=== PATIENT | female | born 1995 ===

== ENCOUNTER 2019-04-22 11:29 | Outpatient (CLI) | payer SELFPAY ==
[2019-04-22 13:39] VITALS: BP 112/53
[2019-04-22] MEDS ORDERED: LACTATED RINGERS 1,000 ML IV SCH (14:00)
[2019-04-22] MEDS ORDERED: PHENYLEPHRINE/NS 1,000 MCG/10 ML SYRINGE (OR USE) IV ONE (14:04)
[2019-04-22] MEDS ORDERED: KETOROLAC 30 MG/1 ML INJ ONE (14:04)
[2019-04-22] MEDS ORDERED: OXYTOCIN 10 UNIT/1 ML INJ ONE (14:04)
[2019-04-22] MEDS ORDERED: LACTATED RINGERS 1,000 ML ONE (14:29)
== END 2019-04-22 13:40 | disposition home or self-care (01) ==
LOC: TRG 11:29
PROVIDERS: ATTEND Obstetrics & Gynecology
DX: O26.893 Other specified pregnancy related conditions, third trimester (principal); R10.9 Unspecified abdominal pain; O47.02 False labor before 37 completed weeks of gestation, second trimester; Z3A.26 26 weeks gestation of pregnancy
CPT/HCPCS: 59025; J1885; J2370; J2590; J7120

== ENCOUNTER 2021-05-27 02:00 | Emergency (ER) | payer SELFPAY ==
[2021-05-27 02:08] VITALS: BP 103/37
[2021-05-27] MEDS ORDERED: ONDANSETRON 4 MG ODT TAB PO ONE (02:55)
[2021-05-27] MEDS ORDERED: ACETAMINOPHEN 500 MG TAB PO ONE (02:55)
[2021-05-27] MEDS ORDERED: FAMOTIDINE 20 MG TAB PO ONE (02:55)
[2021-05-27 03:41] LABS: HCG Qualitative,Urine Positive (Negative)
[2021-05-27 03:42] LABS: Bilirubin,Urine NEG (Negative); Blood,Urine NEG (Negative); Color,Urine Yellow (Yellow); Mucus,Urine 1+ /HPF; Urobilinogen,Urine < 2.0 mg/dL (<2.0)
--- NOTE | 2021-05-27 03:54 | Emergency Department Report ---
ED N/V/D HPI - General Chief complaint: Pain General Stated complaint: COVID S/S Source: patient Mode of arrival: Ambulatory Limitations: No Limitations - History of Present Illness Initial comments: Patient is a A0 25-year-old female who presented to the ED with complaint of acute onset persistent nausea and vomiting with severe headache, generalized weakness and diffuse body aches and pains for the last 1 week, worse in the last 3 days. Patient states that she has not been able to keep anything down in the last 12 hours. Patient denies dizziness, syncope, abdominal pain, vaginal bleeding, vaginal discharge, fever, chills, cough, sore throat, diarrhea, dysuria, urinary frequency and urgency or back pain. MD complaint: nausea, vomiting, other (headache; diffuse body aches and pains, generalized weakness, 5 weeks gestation) -: Sudden, week(s) (1) Description of Vomiting: food contents, watery, bilious Associated Abdominal Pain: No Location: diffuse Radiation: none Severity: severe Pain Scale: 7 Quality: dull Consistency: intermittent Improves with: none Worsens with: eating, vomiting Context: other (Approximately 5 weeks gestation) Associated Symptoms: denies other symptoms, myalgias, headaches, loss of appetite, malaise, nausea/vomiting. denies: chest pain, cough, diaphoresis, fever/chills, rash, dysuria, shortness of breath, syncope, weakness - Related Data Previous Rx's Medication Instructions Recorded Last Taken Type Acetaminophen [Tylenol] 500 mg PO Q6HR PRN #40 tablet 05/27/21 Unknown Rx Famotidine [Pepcid] 20 mg PO BID #60 tablet 05/27/21 Unknown Rx Metoclopramide [Reglan] 10 mg PO Q8H PRN #30 tab 05/27/21 Unknown Rx Promethazine [Phenergan] 25 mg CA Q6HR PRN #15 supp.rect 05/27/21 Unknown Rx Allergies Allergy/AdvReac Type Severity Reaction Status Date / Time No Known Allergies Allergy Verified 04/22/19 13:35 ED Review of Systems ROS: Stated complaint: COVID S/S Other details as noted in HPI Constitutional: weakness. denies: chills, fever Eyes: denies: eye pain, eye discharge, vision change ENT: denies: ear pain, throat pain Respiratory: denies: cough, shortness of breath, wheezing Cardiovascular: denies: chest pain, palpitations Endocrine: no symptoms reported Gastrointestinal: nausea, vomiting. denies: abdominal pain, diarrhea Genitourinary: denies: urgency, dysuria, discharge Musculoskeletal: arthralgia, myalgia. denies: back pain, joint swelling Skin: denies: rash, lesions Neurological: headache. denies: weakness, paresthesias Psychiatric: denies: anxiety, depression Hematological/Lymphatic: denies: easy bleeding, easy bruising ED Past Medical Hx - Past Medical History Previous Medical History?: No Hx Hypertension: No Hx Diabetes: No Hx Deep Vein Thrombosis: No Hx Renal Disease: Yes (as a child) Hx Sickle Cell Disease: No Hx Seizures: No Hx Asthma: No Hx HIV: No - Surgical History Past Surgical History?: No - Social History Smoking Status: Never Smoker - Medications Home Medications: Home Medications Medication Instructions Recorded Confirmed Last Taken Type Acetaminophen [Tylenol] 500 mg PO Q6HR PRN #40 tablet 05/27/21 Unknown Rx Famotidine [Pepcid] 20 mg PO BID #60 tablet 05/27/21 Unknown Rx Metoclopramide [Reglan] 10 mg PO Q8H PRN #30 tab 05/27/21 Unknown Rx Promethazine [Phenergan] 25 mg CA Q6HR PRN #15 supp.rect 05/27/21 Unknown Rx ED Physical Exam - General Limitations: No Limitations General appearance: alert, in no apparent distress - Head Head exam: Present: atraumatic, normocephalic, normal inspection - Eye Eye exam: Present: normal appearance, PERRL, EOMI Pupils: Present: normal accommodation - ENT ENT exam: Present: normal exam, normal orophraynx, mucous membranes moist, TM's normal bilaterally, normal external ear exam - Neck Neck exam: Present: normal inspection, full ROM. Absent: tenderness - Respiratory Respiratory exam: Present: normal lung sounds bilaterally. Absent: respiratory distress, wheezes, rales, rhonchi, chest wall tenderness, other - Cardiovascular Cardiovascular Exam: Present: regular rate, normal rhythm, normal heart sounds. Absent: systolic murmur, diastolic murmur, rubs, gallop - GI/Abdominal GI/Abdominal exam: Present: soft, normal bowel sounds. Absent: tenderness, guarding, hyperactive bowel sounds, hypoactive bowel sounds - Extremities Exam Extremities exam: Present: normal inspection, full ROM, normal capillary refill - Back Exam Back exam: Present: normal inspection, full ROM. Absent: tenderness, CVA tenderness (R), CVA tenderness (L), muscle spasm, paraspinal tenderness, vertebral tenderness - Neurological Exam Neurological exam: Present: alert, oriented X3, CN II-XII intact, normal gait, reflexes normal - Psychiatric Psychiatric exam: Present: normal affect, normal mood - Skin Skin exam: Present: warm, dry, intact, normal color. Absent: rash ED Course Vital Signs 05/27/21 02:01 Temperature 98.9 F Pulse Rate 60 Respiratory 18 Rate Blood Pressure 103/37 [Right] O2 Sat by Pulse 99 Oximetry ED Medical Decision Making - Medical Decision Making This is a A0 25-year-old female who presented to the ED with complaint of acute onset persistent nausea and vomiting with severe headache, generalized weakness and diffuse body aches and pains for the last 1 week, worse in the last 3 days. Patient states that she has not been able to keep anything down in the last 12 hours. In the ED, patient is alert and oriented x3 and is not in any distress. Patient was treated for nausea and vomiting in the ED and also given Tylenol for pain and headache. Urinalysis is unremarkable except for a positive urine hCG test. On reevaluation, patient's headache improved significantly and resolved, patient has not had any nausea or vomiting after being treated with antiemetics in the ED. Patient was therefore discharged home on antiemetics as well as pain medications and advised to follow-up with her primary care physician or [facility] physician in 5 to 7 days for reevaluation or return to the ED immediately if symptoms get worse. - Differential Diagnosis Dehydration; viral gastroenteritis; ; UTI; Critical care attestation.: If time is entered above; I have spent that time in minutes in the direct care of this critically ill patient, excluding procedure time. ED Disposition Clinical Impression: Nausea and vomiting during Acute tension-type headache Qualifiers: Intractability: not intractable Qualified Code(s): G44.209 - Tension-type headache, unspecified, not intractable Disposition: 01 HOME / SELF CARE / HOMELESS Is pt being admited?: No Does the pt Need Aspirin: No Condition: Stable Instructions: Nausea and Vomiting, Adult, [id number], Morning Sickness, Uudz-[id number], Tension Headache, Adult, [id number] Additional Instructions: Maintain a clear liquid diet for 12 to 24 hours, take medication with food, drink plenty of fluids and follow-up with the [facility] physician in 5 to 7 days for reevaluation. Return to the ED immediately if symptoms get worse. Prescriptions: Acetaminophen [Tylenol] 500 mg PO Q6HR PRN #40 tablet PRN Reason: Pain or fever Famotidine [Pepcid] 20 mg PO BID #60 tablet Promethazine [Phenergan] 25 mg CA Q6HR PRN #15 supp.rect PRN Reason: Nausea And Vomiting Metoclopramide [Reglan] 10 mg PO Q8H PRN #30 tab PRN Reason: Nausea And Vomiting Referrals: CHIRAG ODELL MD [Staff Physician] - 3-5 Days Time of Disposition: 03:55 Print Language: KYRGYZ
== END 2021-05-27 03:45 | disposition home or self-care (01) ==
LOC: ED 02:00
DX: O21.9 Vomiting of pregnancy, unspecified (principal); O26.891 Other specified pregnancy related conditions, first trimester; G44.209 Tension-type headache, unspecified, not intractable; Z3A.01 Less than 8 weeks gestation of pregnancy
CPT/HCPCS: 81001; 81025; 99283; J3490; Q0162

== ENCOUNTER 2021-12-28 21:41 | Inpatient (IN) | payer MEDICAID ==
[2021-12-29 00:01] LABS: Amphetamine Screen,Urine PRESUMPTIVE NEGATIVE; Benzodiazepines Screen,Urine PRESUMPTIVE NEGATIVE; Cannabinoid Screen,Urine PRESUMPTIVE NEGATIVE; Cocaine Screen,Urine PRESUMPTIVE NEGATIVE; Methadone Screen,Urine PRESUMPTIVE NEGATIVE; Opiate Screen,Urine PRESUMPTIVE NEGATIVE
[2021-12-29 01:50] LABS: Basophils % (Auto) 0.3 % (0.0-1.8); Eosinophils # (Auto) 0.1 K/mm3 (0.0-0.4); Eosinophils % (Auto) 1.7 % (0.0-4.3); Hematocrit 32.7 % (30.3-42.9); Hemoglobin 10.9 gm/dl (10.1-14.3); Lymphocytes # (Auto) 1.6 K/mm3 (1.2-5.4); Lymphocytes % (Auto) 23.2 % (13.4-35.0); Mean Corpuscular HGB Conc 33 % (30-34); Mean Corpuscular Volume 83 fl (79-97); Monocytes # (Auto) 0.6 K/mm3 (0.0-0.8); Monocytes % (Auto) 8.5 % (0.0-7.3); Platelet Count 179 K/mm3 (140-440); Red Blood Count 3.93 M/mm3 (3.65-5.03); Red Cell Distribution Width 16.1 % (13.2-15.2)
[2021-12-29 02:32] LABS: HCG,Quantitative 3417 mIU/mL (0-4); Hepatitis C Virus Antibody Non-Reactive (NonReactive)
--- NOTE | 2021-12-29 03:02 | Ultrasound Report ---
ULTRASOUND OBSTETRIC FOLLOW UP ULTRASOUND BIOPHYSICAL PROFILE INDICATION / CLINICAL INFORMATION: Evaluate well-being. COMPARISON: None available. FINDINGS: BREATHING MOVEMENT = 2 GROSS BODY MOVEMENT = 2 TONE = 2 QUALITATIVE AMNIOTIC FLUID VOLUME = 2 TOTAL BIOPHYSICAL SCORE = 8/8 AMNIOTIC FLUID INDEX (cm) = 5.0 PRESENTATION: Cephalic. HEART RATE (beats per minute): 140 ADDITIONAL FINDINGS: Based on ultrasound measurements, estimated gestational age is 38.0 weeks. Estim ated weight is 3514 g. IMPRESSION: 1. Biophysical Score = 8/8 2. Decreased amniotic fluid index of 5 cm. Signer Name: Quirino Solorzano MD Signed: 12/29/2021 2:58 AM Workstation Name: [id number]
[2021-12-29] MEDS ORDERED: BUTORPHANOL 2 MG/1 ML INJ IV PRN (03:28)
[2021-12-29] MEDS ORDERED: CARBOPROST TROMETHAMINE 250 MCG/1 ML INJ IM PRN (03:28)
[2021-12-29] MEDS ORDERED: ACETAMINOPHEN 325 MG TAB PO PRN ×2 (03:28→15:59)
[2021-12-29] MEDS ORDERED: TERBUTALINE 1 MG/1 ML INJ SUB-Q PRN (03:28)
[2021-12-29] MEDS ORDERED: fentaNYL 100 MCG/2 ML INJ IV PRN (03:28)
[2021-12-29] MEDS ORDERED: METHYLERGONOVINE MALEATE 0.2 MG/ML VIAL IM PRN (03:28)
--- NOTE | 2021-12-29 03:33 | History and Physical Report ---
History of Present Illness Date of examination: 12/29/21 Date of admission: 12/29/2021 Chief complaint: Decreased movement History of present illness: The patient is a 26-year-old -0-1-3 at 40-3/7 weeks gestation who presents to OB triage reporting decreased movement. There is no vaginal bleeding. There are irregular contractions. There is no leaking of fluid. In OB triage, cervical exam was 3 cm dilated. Nonstress test was reactive. Biophysical profile was 8/8. However, OB ultrasound limited revealed an LORI = 5 cm. As such, this fulfills the contemporary criteria for oligohydramnios. Therefore, at this gestational age, induction of labor is medically indicated to decrease the risk of stillbirth. The patient is admitted to labor and delivery for induction of labor secondary to oligohydramnios and decreased movement. Past History Past Medical History: no pertinent history Past Surgical History: no surgical history Family/Genetic History: diabetes Social history: no significant social history - Obstetrical History Expected Date of Delivery: 12/26/21 Actual Gestation: 40 Week(s) 3 Day(s) : 5 Para: 3 Hx # Term Pregnancies: 3 Number of Pregnancies: 0 Spontaneous Abortions: 1 Induced : 0 Number of Living Children: 3 Medications and Allergies Allergies Allergy/AdvReac Type Severity Reaction Status Date / Time No Known Allergies Allergy Verified 04/22/19 13:35 Home Medications Medication Instructions Recorded Confirmed Last Taken Type Acetaminophen [Tylenol] 500 mg PO Q6HR PRN #40 tablet 05/27/21 Unknown Rx Famotidine [Pepcid] 20 mg PO BID #60 tablet 05/27/21 Unknown Rx Metoclopramide [Reglan] 10 mg PO Q8H PRN #30 tab 05/27/21 Unknown Rx Promethazine [Phenergan] 25 mg MO Q6HR PRN #15 supp.rect 05/27/21 Unknown Rx Active Meds: Active Medications Acetaminophen (Acetaminophen 325 Mg Tab) 650 mg PO Q4H PRN PRN Reason: Pain, Mild (1-3) Butorphanol Tartrate (Butorphanol 2 Mg/1 Ml Inj) 2 mg IV Q2H PRN PRN Reason: Pain, Moderate(4-6) LABOR PAIN Carboprost Tromethamine (Carboprost Tromethamine 250 Mcg/1 Ml Inj) 250 mcg IM ONCE PRN PRN Reason: Uterine Bleeding Fentanyl (Fentanyl 100 Mcg/2 Ml Inj) 100 mcg IV Q2H PRN PRN Reason: Pain,Severe (7-10) LABOR PAIN Lactated Ringer's (Lactated Ringers) 1,000 mls @ 125 mls/hr IV DIRECT MARTÍN Oxytocin/Sodium Chloride (Pitocin/Ns 30 Unit/500ml) 30 units in 500 mls @ 40 mls/hr IV TITR MARTÍN; Protocol Methylergonovine Maleate (Methylergonovine Maleate 0.2 Mg/Ml Vial) 0.2 mg IM ONCE PRN PRN Reason: Uterine Bleeding Misoprostol (Misoprostol 25 Mcg Tab) 25 mcg PO Q4H MARTÍN Stop: 12/29/21 16:01 Terbutaline Sulfate (Terbutaline 1 Mg/1 Ml Inj) 0.25 mg SUB-Q ONCE PRN PRN Reason: Hyperstimulation/Hypertonicity Review of Systems All systems: negative - Vital Signs Vital signs: Vital Signs Pulse Pulse Ox 65 99 12/28/21 23:10 12/28/21 23:10 Temp Pulse Resp BP Pulse Ox 64 126/106 97 12/29/21 03:29 12/29/21 00:18 12/29/21 03:29 - Physical Exam Breasts: Positive: normal Cardiovascular: Regular rate Lungs: Positive: Normal air movement Abdomen: Positive: normal appearance Genitourinary (Female): Positive: normal external genitalia, normal perenium Vulva: both: normal Vagina: Positive: normal moisture Uterus: Positive: enlarged Adnexa: both: normal Anus/Rectum: Positive: normal perianal skin Extremities: Positive: normal Deep Tendon Reflex Grade: Normal +2 - Obstetrical FHR: category 1 Uterine Contraction Monitor Mode: External Cervical Dilatation: 3 Cervical Effacement Percentage: 50 station: -3 Uterine Contraction Pattern: Irregular Uterine Tone Measurement Phase: Contraction Uterine Contraction Intensity: Mild Results Result Diagrams: 12/29/21 01:30 Abnormal lab results 12/29/21 12/29/21 Range/Units 01:30 01:30 RDW 16.1 H (13.2-15.2) % Bollinger % (Auto) 8.5 H (0.0-7.3) % HCG, Quant 3417 H (0-4) mIU/mL All other labs normal. Ultrasound: report reviewed (OB US Limited= SLIUP. Vertex. EFW= 3514 g (37th %-ile). LORI= 5 cm. BPP= 01/01.), image reviewed Assessment and Plan - Patient Problems (1) 40 weeks gestation of Current Visit: Yes Status: Acute Plan to address problem: care is up-to-date. GBS status is unknown. There are no current risk factors for GBS intrapartum prophylaxis. As such, no penicillin at this time. If the patient does develop risk factors or the GBS status is revealed after records were obtained, then start penicillin per protocol for intrapartum GBS prophylaxis. (2) Postmaturity , 40-42 weeks gestation Current Visit: Yes Status: Acute (3) Oligohydramnios in eason in third trimester Current Visit: Yes Status: Acute Plan to address problem: Amniotic fluid index is 5 cm. Etiology is unknown at this time. However, the most likely cause is post due date. At this gestational age, induction of labor is medically indicated to decrease the risk of stillbirth. (4) Encounter for induction of labor Current Visit: Yes Status: Acute Plan to address problem: Start Cytotec for further cervical ripening.
[2021-12-29] MEDS ORDERED: OXYTOCIN DRIP 30 UNITS/500 ML BAG IV SCH (04:00)
[2021-12-29] MEDS ORDERED: miSOPROStol 25 MCG TAB PO SCH (04:00)
[2021-12-29] MEDS: LACTATED RINGERS 1,000 ML IV SCH ×2 (04:53→06:30)
[2021-12-29] MEDS ORDERED: ePHEDrine SULFATE 50 MG/1 ML INJ ONE (06:06)
--- NOTE | 2021-12-29 07:05 | Anesthesia Consultation ---
Anesthesia Consult and Med Hx Date of service: 12/29/21 - Airway Anesthetic Teeth Evaluation: Good ROM Head & Neck: Adequate Mental/Hyoid Distance: Adequate Mallampati Class: Class II Intubation Access Assessment: Probably Good - Pulmonary Exam CTA: Yes - Cardiac Exam Cardiac Exam: RRR - Pre-Operative Health Status ASA Pre-Surgery Classification: ASA2 Proposed Anesthetic Plan: Epidural - Pulmonary Hx Smoking: No Hx Asthma: No COPD: No Hx Pneumonia: No Hx Sleep Apnea: No - Cardiovascular System Hx Hypertension: No - Central Nervous System Hx Seizures: No CVA: No Hx Psychiatric Problems: No - Endocrine Hx Renal Disease: No Hx End Stage Renal Disease: No Hx Liver Disease: No Hx Non-Insulin Dependent Diabetes: No Hx Hypothyroidism: No Hx Hyperthyroidism: No - Hematic Hx Anemia: No Hx Sickle Cell Disease: No - Other Systems Hx Alcohol Use: No Hx Substance Use: No Hx Cancer: No Hx Obesity: No - Additional Comments Anesthesia Medical History Comments: No hx of anesthesia complications
[2021-12-29] MEDS ORDERED: NALOXONE 0.4 MG/1 ML INJ IV PRN (07:06)
--- NOTE | 2021-12-29 07:06 | Progress Note ---
Labor Epidural - Labor Epidural Start Time: 06:28 Stop Time: 06:44 Performed by:: ANGELES DENNY Procedure: Patient is requesting epidural for labor pain. H&P and labs reviewed. Procedure explained, questions answered, consent obtained. Patient placed in sitting position with monitors applied. Timeout performed immediately before start of procedure. Prep/drape in usual sterile fashion. Skin localized 3 mL 1% lidocaine at L[3]-L[4] interspace. 17-gauge Touhy epidural needle advanced to MARC with saline at [7] cm. No blood/CSF noted via epidural needle [id number]. Epidural catheter advanced to [13] cm. Negative aspiration for blood and CSF via catheter, negative response to test dose 3 ml 1.5% lidocaine w/ Epi. Sterile dressing applied followed by tape reinforcement. Patient tolerated procedure well. No immediate complications noted.
[2021-12-29] MEDS ORDERED: ePHEDrine SULFATE 50 MG/1 ML INJ IV PRN (07:30)
[2021-12-29] MEDS ORDERED: fentaNYL-BUPIV 2 MCG/ML-0.125% 200 MCG/100 ML BAG EPIDURAL SCH (08:00)
[2021-12-29] MEDS ORDERED: AMPICILLIN/NS 2 GM/100 ML 2 GM/100 ML BAG IV ONE (09:09)
[2021-12-29] MEDS: OXYTOCIN DRIP 30 UNITS/500 ML BAG IV SCH ×3 (09:40→12:13)
--- NOTE | 2021-12-29 09:59 | Progress Note ---
Assessment and Plan A: IUP@ 40.3 wks GBS unknown Oligo p: Continue monitoring GBS protocal Start Pitocin per protocal Anticipate Subjective - Subjective Date of service: 12/29/21 Principal diagnosis: 40.3 wks Patient reports: movement normal, contractions Objective - Vital Signs Vital Signs: Vital Signs - 12hr 12/28/21 12/28/21 12/28/21 23:10 23:11 23:15 Temperature Pulse Rate 65 62 60 Respiratory Rate Blood Pressure 114/68 Blood Pressure [Right] O2 Sat by Pulse 99 99 Oximetry O2 Sat by Pulse Oximetry [ Bilateral Throughout] 12/28/21 12/28/21 12/28/21 23:20 23:25 23:30 Temperature Pulse Rate 61 71 63 Respiratory Rate Blood Pressure Blood Pressure [Right] O2 Sat by Pulse 99 99 99 Oximetry O2 Sat by Pulse Oximetry [ Bilateral Throughout] 12/28/21 12/28/21 12/28/21 23:35 23:40 23:45 Temperature Pulse Rate 58 L 65 68 Respiratory Rate Blood Pressure Blood Pressure [Right] O2 Sat by Pulse 100 100 99 Oximetry O2 Sat by Pulse Oximetry [ Bilateral Throughout] 12/28/21 12/28/21 12/28/21 23:48 23:50 23:55 Temperature Pulse Rate 63 69 65 Respiratory Rate Blood Pressure 112/56 Blood Pressure [Right] O2 Sat by Pulse 98 98 Oximetry O2 Sat by Pulse Oximetry [ Bilateral Throughout] 12/28/21 12/29/21 12/29/21 23:57 00:03 00:13 Temperature Pulse Rate 94 H 70 84 Respiratory Rate Blood Pressure Blood Pressure [Right] O2 Sat by Pulse 83 L 97 74 L Oximetry O2 Sat by Pulse Oximetry [ Bilateral Throughout] 12/29/21 12/29/21 12/29/21 00:16 00:18 00:24 Temperature Pulse Rate 66 80 63 Respiratory Rate Blood Pressure 126/106 Blood Pressure [Right] O2 Sat by Pulse 76 L 99 Oximetry O2 Sat by Pulse Oximetry [ Bilateral Throughout] 12/29/21 12/29/21 12/29/21 00:29 00:32 00:34 Temperature Pulse Rate 59 L 64 73 Respiratory Rate Blood Pressure Blood Pressure [Right] O2 Sat by Pulse 98 83 L 81 L Oximetry O2 Sat by Pulse Oximetry [ Bilateral Throughout] 12/29/21 12/29/21 12/29/21 00:37 00:39 00:43 Temperature Pulse Rate 60 65 63 Respiratory Rate Blood Pressure Blood Pressure [Right] O2 Sat by Pulse 93 96 94 Oximetry O2 Sat by Pulse Oximetry [ Bilateral Throughout] 12/29/21 12/29/21 12/29/21 00:44 00:49 00:55 Temperature Pulse Rate 60 85 50 L Respiratory Rate Blood Pressure Blood Pressure [Right] O2 Sat by Pulse 97 96 90 Oximetry O2 Sat by Pulse Oximetry [ Bilateral Throughout] 12/29/21 12/29/21 12/29/21 00:56 01:01 01:06 Temperature Pulse Rate 58 L 68 71 Respiratory Rate Blood Pressure Blood Pressure [Right] O2 Sat by Pulse 98 98 97 Oximetry O2 Sat by Pulse Oximetry [ Bilateral Throughout] 12/29/21 12/29/21 12/29/21 01:11 01:16 01:21 Temperature Pulse Rate 62 63 77 Respiratory Rate Blood Pressure Blood Pressure [Right] O2 Sat by Pulse 98 98 99 Oximetry O2 Sat by Pulse Oximetry [ Bilateral Throughout] 12/29/21 12/29/21 12/29/21 01:26 01:31 01:36 Temperature Pulse Rate 59 L 69 72 Respiratory Rate Blood Pressure Blood Pressure [Right] O2 Sat by Pulse 98 98 98 Oximetry O2 Sat by Pulse Oximetry [ Bilateral Throughout] 12/29/21 12/29/21 12/29/21 01:41 01:46 01:51 Temperature Pulse Rate 75 69 73 Respiratory Rate Blood Pressure Blood Pressure [Right] O2 Sat by Pulse 97 97 97 Oximetry O2 Sat by Pulse Oximetry [ Bilateral Throughout] 12/29/21 12/29/21 12/29/21 01:56 02:01 02:06 Temperature Pulse Rate 72 80 75 Respiratory Rate Blood Pressure Blood Pressure [Right] O2 Sat by Pulse 96 96 99 Oximetry O2 Sat by Pulse Oximetry [ Bilateral Throughout] 12/29/21 12/29/21 12/29/21 02:11 02:16 03:04 Temperature Pulse Rate 69 88 65 Respiratory Rate Blood Pressure Blood Pressure [Right] O2 Sat by Pulse 96 96 99 Oximetry O2 Sat by Pulse Oximetry [ Bilateral Throughout] 12/29/21 12/29/21 12/29/21 03:09 03:14 03:19 Temperature Pulse Rate 62 68 63 Respiratory Rate Blood Pressure Blood Pressure [Right] O2 Sat by Pulse 98 98 98 Oximetry O2 Sat by Pulse Oximetry [ Bilateral Throughout] 12/29/21 12/29/21 12/29/21 03:24 03:29 03:34 Temperature Pulse Rate 67 64 68 Respiratory Rate Blood Pressure Blood Pressure [Right] O2 Sat by Pulse 98 97 97 Oximetry O2 Sat by Pulse Oximetry [ Bilateral Throughout] 12/29/21 12/29/21 12/29/21 03:39 03:44 03:49 Temperature Pulse Rate 65 65 64 Respiratory Rate Blood Pressure Blood Pressure [Right] O2 Sat by Pulse 97 97 97 Oximetry O2 Sat by Pulse Oximetry [ Bilateral Throughout] 12/29/21 12/29/21 12/29/21 03:54 03:59 04:04 Temperature Pulse Rate 68 68 61 Respiratory Rate Blood Pressure Blood Pressure [Right] O2 Sat by Pulse 98 97 98 Oximetry O2 Sat by Pulse Oximetry [ Bilateral Throughout] 12/29/21 12/29/21 12/29/21 04:08 04:09 04:14 Temperature Pulse Rate 64 62 Respiratory Rate Blood Pressure Blood Pressure [Right] O2 Sat by Pulse 98 99 Oximetry O2 Sat by Pulse 98 Oximetry [ Bilateral Throughout] 12/29/21 12/29/21 12/29/21 04:20 04:24 04:27 Temperature 98.0 F Pulse Rate 57 L Respiratory 17 Rate Blood Pressure 122/62 Blood Pressure [Right] O2 Sat by Pulse 98 100 Oximetry O2 Sat by Pulse Oximetry [ Bilateral Throughout] 12/29/21 12/29/21 12/29/21 04:29 04:34 04:39 Temperature Pulse Rate 65 72 62 Respiratory Rate Blood Pressure Blood Pressure [Right] O2 Sat by Pulse 99 99 98 Oximetry O2 Sat by Pulse Oximetry [ Bilateral Throughout] 12/29/21 12/29/21 12/29/21 04:44 04:49 04:54 Temperature Pulse Rate 67 64 67 Respiratory Rate Blood Pressure Blood Pressure [Right] O2 Sat by Pulse 99 98 99 Oximetry O2 Sat by Pulse Oximetry [ Bilateral Throughout] 12/29/21 12/29/21 12/29/21 04:59 05:04 05:09 Temperature Pulse Rate 59 L 65 59 L Respiratory Rate Blood Pressure Blood Pressure [Right] O2 Sat by Pulse 99 99 99 Oximetry O2 Sat by Pulse Oximetry [ Bilateral Throughout] 12/29/21 12/29/21 12/29/21 05:14 05:19 05:24 Temperature Pulse Rate 57 L 60 67 Respiratory Rate Blood Pressure Blood Pressure [Right] O2 Sat by Pulse 99 98 99 Oximetry O2 Sat by Pulse Oximetry [ Bilateral Throughout] 12/29/21 12/29/21 12/29/21 05:29 05:34 05:39 Temperature Pulse Rate 57 L 69 55 L Respiratory Rate Blood Pressure Blood Pressure [Right] O2 Sat by Pulse 99 99 98 Oximetry O2 Sat by Pulse Oximetry [ Bilateral Throughout] 12/29/21 12/29/21 12/29/21 05:44 05:49 05:59 Temperature Pulse Rate 61 68 Respiratory Rate Blood Pressure Blood Pressure [Right] O2 Sat by Pulse 98 99 100 Oximetry O2 Sat by Pulse Oximetry [ Bilateral Throughout] 12/29/21 12/29/21 12/29/21 06:04 06:09 06:14 Temperature Pulse Rate 69 54 L 55 L Respiratory Rate Blood Pressure Blood Pressure [Right] O2 Sat by Pulse 98 100 100 Oximetry O2 Sat by Pulse Oximetry [ Bilateral Throughout] 12/29/21 12/29/21 12/29/21 06:19 06:24 06:29 Temperature Pulse Rate 56 L 62 56 L Respiratory Rate Blood Pressure Blood Pressure [Right] O2 Sat by Pulse 98 98 99 Oximetry O2 Sat by Pulse Oximetry [ Bilateral Throughout] 12/29/21 12/29/21 12/29/21 06:31 06:34 06:37 Temperature Pulse Rate 54 L 68 60 Respiratory Rate Blood Pressure 119/76 120/85 Blood Pressure [Right] O2 Sat by Pulse 98 Oximetry O2 Sat by Pulse Oximetry [ Bilateral Throughout] 12/29/21 12/29/21 12/29/21 06:40 06:41 06:45 Temperature Pulse Rate 63 65 60 Respiratory Rate Blood Pressure 121/82 Blood Pressure [Right] O2 Sat by Pulse 100 98 Oximetry O2 Sat by Pulse Oximetry [ Bilateral Throughout] 12/29/21 12/29/21 12/29/21 06:46 06:50 06:51 Temperature Pulse Rate 70 76 77 Respiratory Rate Blood Pressure 131/82 132/75 Blood Pressure [Right] O2 Sat by Pulse 99 Oximetry O2 Sat by Pulse Oximetry [ Bilateral Throughout] 12/29/21 12/29/21 12/29/21 06:55 06:57 07:00 Temperature Pulse Rate 68 68 60 Respiratory Rate Blood Pressure 124/68 Blood Pressure [Right] O2 Sat by Pulse 99 99 Oximetry O2 Sat by Pulse Oximetry [ Bilateral Throughout] 12/29/21 12/29/21 12/29/21 07:01 07:05 07:06 Temperature Pulse Rate 63 60 51 L Respiratory Rate Blood Pressure 117/61 112/57 Blood Pressure [Right] O2 Sat by Pulse 99 Oximetry O2 Sat by Pulse Oximetry [ Bilateral Throughout] 12/29/21 12/29/21 12/29/21 07:10 07:15 07:16 Temperature Pulse Rate 63 64 60 Respiratory Rate Blood Pressure 106/55 Blood Pressure [Right] O2 Sat by Pulse 98 98 Oximetry O2 Sat by Pulse Oximetry [ Bilateral Throughout] 12/29/21 12/29/21 12/29/21 07:20 07:25 07:26 Temperature Pulse Rate 91 H 63 64 Respiratory Rate Blood Pressure 106/55 Blood Pressure [Right] O2 Sat by Pulse 98 96 Oximetry O2 Sat by Pulse Oximetry [ Bilateral Throughout] 12/29/21 12/29/21 12/29/21 07:30 07:35 07:36 Temperature Pulse Rate 62 63 64 Respiratory Rate Blood Pressure 101/57 Blood Pressure [Right] O2 Sat by Pulse 97 96 Oximetry O2 Sat by Pulse Oximetry [ Bilateral Throughout] 12/29/21 12/29/21 12/29/21 07:40 07:45 07:46 Temperature Pulse Rate 63 61 64 Respiratory Rate Blood Pressure 101/55 Blood Pressure [Right] O2 Sat by Pulse 96 97 Oximetry O2 Sat by Pulse Oximetry [ Bilateral Throughout] 12/29/21 12/29/21 12/29/21 07:50 07:55 07:56 Temperature Pulse Rate 62 64 57 L Respiratory Rate Blood Pressure 103/55 Blood Pressure [Right] O2 Sat by Pulse 96 97 Oximetry O2 Sat by Pulse Oximetry [ Bilateral Throughout] 12/29/21 12/29/21 12/29/21 08:00 08:05 08:06 Temperature Pulse Rate 63 63 61 Respiratory Rate Blood Pressure 103/57 Blood Pressure [Right] O2 Sat by Pulse 97 97 Oximetry O2 Sat by Pulse Oximetry [ Bilateral Throughout] 12/29/21 12/29/21 12/29/21 08:10 08:15 08:16 Temperature Pulse Rate 66 69 60 Respiratory Rate Blood Pressure 101/57 Blood Pressure [Right] O2 Sat by Pulse 98 97 Oximetry O2 Sat by Pulse Oximetry [ Bilateral Throughout] 12/29/21 12/29/21 12/29/21 08:20 08:25 08:26 Temperature Pulse Rate 63 64 61 Respiratory Rate Blood Pressure 91/50 Blood Pressure [Right] O2 Sat by Pulse 97 98 Oximetry O2 Sat by Pulse Oximetry [ Bilateral Throughout] 12/29/21 12/29/21 12/29/21 08:30 08:35 08:36 Temperature Pulse Rate 65 64 60 Respiratory Rate Blood Pressure 94/52 Blood Pressure [Right] O2 Sat by Pulse 97 98 Oximetry O2 Sat by Pulse Oximetry [ Bilateral Throughout] 12/29/21 12/29/21 12/29/21 08:40 08:45 08:46 Temperature Pulse Rate 61 64 63 Respiratory Rate Blood Pressure 95/55 Blood Pressure [Right] O2 Sat by Pulse 97 98 Oximetry O2 Sat by Pulse Oximetry [ Bilateral Throughout] 12/29/21 12/29/21 12/29/21 08:50 08:55 08:56 Temperature Pulse Rate 60 57 L 57 L Respiratory Rate Blood Pressure 97/56 Blood Pressure [Right] O2 Sat by Pulse 98 99 Oximetry O2 Sat by Pulse Oximetry [ Bilateral Throughout] 12/29/21 12/29/21 12/29/21 09:00 09:05 09:06 Temperature Pulse Rate 63 60 160 H Respiratory Rate Blood Pressure 94/57 Blood Pressure [Right] O2 Sat by Pulse 99 98 Oximetry O2 Sat by Pulse Oximetry [ Bilateral Throughout] 12/29/21 12/29/21 12/29/21 09:10 09:15 09:16 Temperature Pulse Rate 59 L 60 52 L Respiratory Rate Blood Pressure 96/55 Blood Pressure [Right] O2 Sat by Pulse 98 98 Oximetry O2 Sat by Pulse Oximetry [ Bilateral Throughout] 12/29/21 12/29/21 12/29/21 09:20 09:25 09:26 Temperature Pulse Rate 57 L 55 L 66 Respiratory Rate Blood Pressure 92/55 Blood Pressure [Right] O2 Sat by Pulse 98 98 Oximetry O2 Sat by Pulse Oximetry [ Bilateral Throughout] 12/29/21 12/29/21 12/29/21 09:30 09:35 09:36 Temperature Pulse Rate 59 L 58 L 66 Respiratory Rate Blood Pressure 108/55 Blood Pressure [Right] O2 Sat by Pulse 98 98 Oximetry O2 Sat by Pulse Oximetry [ Bilateral Throughout] 12/29/21 12/29/21 12/29/21 09:40 09:45 09:46 Temperature 98.2 F Pulse Rate 61 59 L 54 L Respiratory 16 Rate Blood Pressure 103/56 Blood Pressure 108/55 [Right] O2 Sat by Pulse 99 98 Oximetry O2 Sat by Pulse 98 Oximetry [ Bilateral Throughout] 12/29/21 12/29/21 09:50 09:55 Temperature Pulse Rate 65 57 L Respiratory Rate Blood Pressure Blood Pressure [Right] O2 Sat by Pulse 99 99 Oximetry O2 Sat by Pulse Oximetry [ Bilateral Throughout] - Exam Breasts: deferred Abdomen: Present: normal appearance, soft, normal bowel sounds Vulva: both: normal FHR: auscultation normal, category 1 Uterine Contraction Monitor Mode: External Cervical Dilatation: 4 Cervical Effacement Percentage: 60 station: -2 Uterine Contraction Pattern: Irregular Uterine Tone Measurement Phase: Resting Uterine Contraction Intensity: Mild Extremities: normal - Labs Labs: Abnormal Labs 12/29/21 12/29/21 01:30 01:30 RDW 16.1 H [place] % (Auto) 8.5 H HCG, Quant 3417 H Laboratory Results - last 24 hr 12/28/21 12/29/21 12/29/21 23:43 01:30 01:30 WBC 6.9 RBC 3.93 Hgb 10.9 Hct 32.7 MCV 83 MCH 28 MCHC 33 RDW 16.1 H Plt Count 179 Lymph % (Auto) 23.2 [place] % (Auto) 8.5 H Eos % (Auto) 1.7 Baso % (Auto) 0.3 Lymph # (Auto) 1.6 [place] # (Auto) 0.6 Eos # (Auto) 0.1 Baso # (Auto) 0.0 Seg Neutrophils % 66.3 Seg Neutrophils # 4.6 HCG, Quant 3417 H Urine Opiates Screen Presumptive negative Urine Methadone Screen Presumptive negative Ur Barbiturates Screen Presumptive negative Ur Phencyclidine Scrn Presumptive negative Ur Amphetamines Screen Presumptive negative U Benzodiazepines Scrn Presumptive negative Urine Cocaine Screen Presumptive negative U Marijuana (THC) Screen Presumptive negative Drugs of Abuse Note Disclamer Syphilis IgG/IgM Ab Hep Bs Antigen Hepatitis C Antibody Non-reactive HIV 1&2 Antibody Rapid HIV P24 Antigen Rubella IgG Antibody Immune Blood Type Antibody Screen 12/29/21 12/29/21 12/29/21 01:30 01:30 01:30 WBC RBC Hgb Hct MCV MCH MCHC RDW Plt Count Lymph % (Auto) [place] % (Auto) Eos % (Auto) Baso % (Auto) Lymph # (Auto) [place] # (Auto) Eos # (Auto) Baso # (Auto) Seg Neutrophils % Seg Neutrophils # HCG, Quant Urine Opiates Screen Urine Methadone Screen Ur Barbiturates Screen Ur Phencyclidine Scrn Ur Amphetamines Screen U Benzodiazepines Scrn Urine Cocaine Screen U Marijuana (THC) Screen Drugs of Abuse Note Syphilis IgG/IgM Ab Nonreactive Hep Bs Antigen Non-reactive Hepatitis C Antibody HIV 1&2 Antibody Rapid Non react HIV P24 Antigen Non react Rubella IgG Antibody Blood Type Antibody Screen 12/29/21 01:30 WBC RBC Hgb Hct MCV MCH MCHC RDW Plt Count Lymph % (Auto) [place] % (Auto) Eos % (Auto) Baso % (Auto) Lymph # (Auto) [place] # (Auto) Eos # (Auto) Baso # (Auto) Seg Neutrophils % Seg Neutrophils # HCG, Quant Urine Opiates Screen Urine Methadone Screen Ur Barbiturates Screen Ur Phencyclidine Scrn Ur Amphetamines Screen U Benzodiazepines Scrn Urine Cocaine Screen U Marijuana (THC) Screen Drugs of Abuse Note Syphilis IgG/IgM Ab Hep Bs Antigen Hepatitis C Antibody HIV 1&2 Antibody Rapid HIV P24 Antigen Rubella IgG Antibody Blood Type A POSITIVE Antibody Screen Negative
[2021-12-29] MEDS ORDERED: AMPICILLIN/NS 1 GM/50 ML 1 GM/50 ML BAG IV SCH (14:00)
[2021-12-29] MEDS ORDERED: diphenhydrAMINE 25 MG CAP PO PRN (15:59)
[2021-12-29] MEDS ORDERED: LANOLIN/ZINC/DIMETHICONE (LANSINOH) 7 GM TP PRN (15:59)
[2021-12-29] MEDS ORDERED: PROMETHAZINE 25 MG RECT SUPP PR PRN (15:59)
[2021-12-29] MEDS ORDERED: WITCH HAZEL/ GLYCERIN PAD TP PRN (15:59)
[2021-12-29] MEDS ORDERED: MAGNESIUM HYDROXIDE (MOM) ORAL LIQD UDC PO PRN (15:59)
[2021-12-29] MEDS ORDERED: PROMETHAZINE 25 MG TAB PO PRN (15:59)
[2021-12-29] MEDS ORDERED: ONDANSETRON 4 MG/2 ML INJ IV PRN (15:59)
[2021-12-29] MEDS: AMPICILLIN/NS 2 GM/100 ML 2 GM/100 ML BAG IV SCH ×2 (16:04→22:06)
--- NOTE | 2021-12-29 16:09 | Procedure Note ---
OB Delivery Note - Delivery Date of Delivery: 12/29/21 Surgeon: BRIDGETTE PASTOR Estimated blood loss: other (QBL 450cc) - Vaginal Delivery presentation: vertex (Manual removal of an intact placenta 30+ min after delivery. Ampicillin ordered and pelvic us. Dr Hewitt was notified.) Delivery position: OA Intrapartum events: meconium, other(please specify) (oligo) Delivery induction: misoprostol Delivery augmentation: pitocin Delivery monitor: external FHT, external uterine Route of delivery: Delivery placenta: manual, other (intact) Delivery cord: 3 umbilical vessels Episiotomy: none Delivery laceration: none Anesthesia: epidural - A at 1 minute: 8 at 5 minutes: 9 Gender: Male
--- NOTE | 2021-12-29 17:20 | Ultrasound Report ---
ULTRASOUND PELVIS INDICATION / CLINICAL INFORMATION: RETAINED PRODUCT. . TECHNIQUE: Transabdominal. Duplex Color Doppler used: Yes. COMPARISON: None available FINDINGS: UTERUS: - Appearance: Enlarged, appearance - Endometrial Complex (if present): Mildly thickened and heterogeneous. No significant color Doppler flow.. Thickness in cm (if measured) = 1.5 cm - Mass or cyst: None. - Additional findings: None. RIGHT ADNEXA: Not evaluated LEFT ADNEXA: Not evaluated URINARY BLADDER: No significant abnormality. FREE FLUID: None. ADDITIONAL FINDINGS: None. IMPRESSION: 1. No definite sonographic evidence for retained products of conception. Thickened endometrial comple x in a uterus. It is difficult to distinguish a uterus containing clots from re tained products of conception. Clinical correlation is recommended. Signer Name: Jami Andres MD Signed: 12/29/2021 5:16 PM Workstation Name: [id number]
[2021-12-29] MEDS: IBUPROFEN 800 MG TAB PO SCH (17:44)
[2021-12-29] MEDS: oxyCODONE /ACETAMINOPHEN 5-325MG TAB PO PRN (20:39)
[2021-12-30] MEDS: IBUPROFEN 800 MG TAB PO SCH ×4 (00:35→23:38)
[2021-12-30] MEDS: oxyCODONE /ACETAMINOPHEN 5-325MG TAB PO PRN ×2 (04:25→18:57)
[2021-12-30] MEDS: AMPICILLIN/NS 2 GM/100 ML 2 GM/100 ML BAG IV SCH ×2 (04:25→10:30)
[2021-12-30 07:36] LABS: Hematocrit 29.8 % (30.3-42.9); Hemoglobin 9.6 gm/dl (10.1-14.3)
[2021-12-30] MEDS ORDERED: PRENATAL VIT27-FE FUMARATE-FOLIC ACID VIT TAB PO SCH (10:00)
[2021-12-30] MEDS ORDERED: FERROUS SULFATE 325 MG TAB PO SCH (10:00)
--- NOTE | 2021-12-30 11:12 | Progress Note ---
Assessment and Plan POD #1 A: S/P Asymptomatic anemia P: Continue routine pp orders Fe rx Encourage ambulation D/C home tomm if stable Subjective - Subjective Date of service: 12/30/21 Principal diagnosis: s/p Patient reports: appetite normal, voiding normally, pain well controlled, ambulating normally : doing well, bottle feeding Objective - Vital Signs Latest vital signs: Vital Signs Temp Pulse Resp BP BP Pulse Ox Pulse Ox 12/30/21 08:15 100 12/30/21 07:29 97.6 F 51 L 18 84/41 100 12/30/21 05:25 98.2 F 62 18 106/53 98 12/30/21 00:47 97.4 F L 63 18 102/42 98 12/29/21 21:20 98.1 F 57 L 18 101/43 100 12/29/21 20:45 97 12/29/21 17:55 98.6 F 66 18 122/63 99 99 12/29/21 17:21 69 93 12/29/21 17:20 74 88 12/29/21 17:16 78 80 L 12/29/21 17:14 82 76 L 12/29/21 17:11 72 126/57 100 12/29/21 17:06 80 100 12/29/21 17:01 73 96 12/29/21 16:58 74 88 12/29/21 16:56 76 94 12/29/21 16:53 71 94 12/29/21 16:51 69 98 12/29/21 16:46 71 99 12/29/21 16:41 72 99 12/29/21 16:36 70 99 12/29/21 16:31 82 100 12/29/21 16:26 72 107/55 100 12/29/21 16:21 71 100 12/29/21 16:15 74 100 12/29/21 16:11 74 124/60 12/29/21 16:10 70 97 12/29/21 16:05 75 98 12/29/21 16:00 69 100 12/29/21 15:56 69 119/58 12/29/21 15:55 57 L 99 12/29/21 15:50 67 99 12/29/21 15:45 63 99 12/29/21 15:41 64 110/55 12/29/21 15:40 77 96 12/29/21 15:35 69 100 12/29/21 15:31 69 119/63 12/29/21 15:30 71 99 12/29/21 15:26 62 118/60 12/29/21 15:25 73 99 12/29/21 15:20 59 L 98 12/29/21 15:15 68 99 12/29/21 15:10 74 99 12/29/21 15:05 70 99 12/29/21 15:00 65 100 12/29/21 14:55 73 98 12/29/21 14:50 72 98 12/29/21 14:49 71 166/79 12/29/21 14:45 75 98 12/29/21 14:40 70 99 12/29/21 14:35 65 100 12/29/21 14:30 66 99 12/29/21 14:25 70 97 12/29/21 14:20 65 97 12/29/21 14:17 61 114/59 12/29/21 14:15 64 99 12/29/21 14:10 64 99 12/29/21 14:05 63 99 12/29/21 14:00 62 99 12/29/21 13:55 72 99 12/29/21 13:50 65 99 12/29/21 13:47 64 116/65 12/29/21 13:45 65 99 12/29/21 13:40 60 99 12/29/21 13:35 73 98 12/29/21 13:30 78 99 12/29/21 13:25 62 98 12/29/21 13:20 57 L 99 12/29/21 13:17 64 129/58 12/29/21 13:15 64 99 12/29/21 13:10 64 99 12/29/21 13:05 73 97 12/29/21 13:00 66 100 12/29/21 12:55 60 99 12/29/21 12:50 61 97 12/29/21 12:47 62 109/59 12/29/21 12:45 63 99 12/29/21 12:40 71 98 12/29/21 12:35 58 L 98 12/29/21 12:30 61 98 12/29/21 12:25 61 98 12/29/21 12:20 54 L 98 12/29/21 12:17 64 111/59 12/29/21 12:15 62 99 12/29/21 12:10 69 98 12/29/21 12:05 70 98 12/29/21 12:00 67 98 12/29/21 11:55 70 98 12/29/21 11:50 59 L 98 12/29/21 11:48 59 L 103/59 12/29/21 11:45 58 L 98 12/29/21 11:40 60 98 12/29/21 11:35 60 97 12/29/21 11:30 61 98 12/29/21 11:25 59 L 97 12/29/21 11:20 58 L 97 12/29/21 11:18 63 101/53 12/29/21 11:15 60 98 Intake and Output 12/29/21 12/30/21 12/30/21 22:59 06:59 14:59 Intake Total 260 340 240 Output Total 700 Balance 260 -360 240 Intake: IV 140 100 AMPICILLIN/NS 2 GM/100 ML 100 100 2 gm In 100 ml @ 100 mls /hr IV Q6H [facility] Rx#: [id number] Left Hand 40 Oral 120 240 240 Output: Urine 700 Void 700 Other: Total, Intake Amount 120 120 240 Total, Output Amount 300 # Voids Void 1 1 Estimated Blood Loss 450 - Exam Breasts: Present: normal Abdomen: Present: normal appearance, soft, normal bowel sounds Vulva: both: normal Uterus: Present: normal, firm, fundal height below umbilicus Extremities: Present: normal - Labs Labs: Abnormal lab results 12/30/21 Range/Units 07:03 Hgb 9.6 L (10.1-14.3) gm/dl Hct 29.8 L (30.3-42.9) %
[2021-12-31] MEDS: IBUPROFEN 800 MG TAB PO SCH ×2 (05:12→12:31)
--- NOTE | 2021-12-31 09:02 | Discharge Summary ---
Providers - Providers Date of Admission: 12/29/21 15:28 Date of discharge: 12/31/21 Attending physician: SHIRA AIKEN MD Primary care physician: SHIRA AIKEN MD Hospitalization Reason for admission: induction of labor Delivery: , other (manual removal of placenta) Episiotomy: none Laceration: none Other procedures: none complications: none Discharge diagnosis: IUP at term delivered baby: male Hospital course: Pt presented to ob triage with c/o decreased FM. She was found to be in early labor and her LORI was 5. She was admitted to L&D for oligo and decreased FM. She had a with manual placenta removal. A pelvic US revealed no retained placenta products. Pt received abt x 24hr pp. Pt developed no pp complications and was sent home in stable condition. Condition at discharge: Stable Disposition: 01 HOME / SELF CARE / HOMELESS Plan - Discharge Medications Prescriptions: Ferrous Sulfate [Feosol 325 MG tab] 325 mg PO QDAY #30 tablet Ibuprofen [Motrin 800 MG tab] 800 mg PO Q6H PRN #20 tablet PRN Reason: Pain, Mild (1-3) - Provider Discharge Summary Activity: routine, no sex for 6 weeks, no heavy lifting 4 weeks, no strenuous exercise Diet: routine Instructions: routine Additional instructions: [] Smoking cessation referral if applicable(refer to patient education folder for contact #) [] Refer to [facility] Booklet Call your doctor immediately for: * Fever > 100.5 * Heavy vaginal bleeding ( >1 pad per hour) * Severe persistent headache * Shortness of breath * Reddened, hot, painful area to leg or breast * Drainage or odor from incision. * Keep incision clean and dry at all times and follow doctor's instructions regarding bathing/showering - Follow up plan Follow up: SHIRA AIKEN MD [Primary Care Provider] - 6 Weeks
[2021-12-31 13:48] VITALS: BP 120/62
== END 2021-12-31 13:45 | disposition home or self-care (01) | DRG 767 ==
LOC: TRG 21:41 → APU 21:44 → LD 12-29 03:00 → TRG 12-29 15:41 → OB 12-29 17:51
PROVIDERS: ADMIT Obstetrics & Gynecology Gynecology; ATTEND Obstetrics & Gynecology Gynecology
PROC: 10E0XZZ Delivery of Products of Conception, External Approach (ICD-10-PCS; principal; 2021-12-29)
PROC: 10D17Z9 Manual Extraction of Products of Conception, Retained, Via Natural or Artificial Opening (ICD-10-PCS; 2021-12-29)
PROC: 3E0R3BZ Introduction of Anesthetic Agent into Spinal Canal, Percutaneous Approach (ICD-10-PCS; 2021-12-29)
PROC: 00HU33Z Insertion of Infusion Device into Spinal Canal, Percutaneous Approach (ICD-10-PCS; 2021-12-29)
PROC: 3E0P7VZ Introduction of Hormone into Female Reproductive, Via Natural or Artificial Opening (ICD-10-PCS; 2021-12-29)
DX: O77.0 Labor and delivery complicated by meconium in amniotic fluid (principal); Z20.822 Contact with and (suspected) exposure to COVID-19; Z37.0 Single live birth; Z3A.40 40 weeks gestation of pregnancy; O41.03X0 Oligohydramnios, third trimester, not applicable or unspecified; O36.8130 Decreased fetal movements, third trimester, not applicable or unspecified; O48.0 Post-term pregnancy; O90.81 Anemia of the puerperium
CPT/HCPCS: 36415; 76816; 76819; 76857; 80307; 84702; 85014; 85018; 85025; 86592; 86706; 86762; 86803; 86850; 86900; 86901; 87806; G0378; J3490; J0290; J2590; J7120; U0003